=== PATIENT | female | born 1945 | race Caucasian/White ===

== ENCOUNTER 2025-06-28 19:28 | Inpatient (IN) | payer MEDICARE, OTHER ==
[~2025-06-28] VITALS: Ht 157.5 cm; Wt 72.6 kg
[2025-06-28] MEDS ORDERED: Ondansetron HCl 2 MG / ML 2ML Vial IV ONE ×2 (20:20→20:50)
[2025-06-28] MEDS ORDERED: NS 1,000 ML IV SCH ×2 (20:50→23:10)
[2025-06-28] MEDS ORDERED: HYDROmorphone HCl/Pf 1MG SYR IV ONE (20:50)
[2025-06-28 21:14] LABS: BASOPHILS ABSOLUTE AUTO 0.06 K/mm3 (0.00-0.23); BASOPHILS PERCENT AUTO 1 % (0-2); EOSINOPHILS ABSOLUTE AUTO 0.26 K/mm3 (0.00-0.68); EOSINOPHILS PERCENT AUTO 2 % (0-6); Hematocrit 41.5 % (33.0-51.0); Hemoglobin 13.5 g/dL (11.5-16.0); IMMATURE GRAN ABSOLUTE AUTO 0.12 K/mm3 (0.00-0.10); IMMATURE GRAN PERCENT AUTO 1 % (0-1); LYMPHOCYTES ABSOLUTE AUTO 1.57 K/mm3 (0.84-5.20); LYMPHOCYTES PERCENT AUTO 14 % (21-46); MONOCYTES ABSOLUTE AUTO 0.54 K/mm3 (0.16-1.47); MONOCYTES PERCENT AUTO 5 % (4-13); Mean Corpuscular HGB Conc 32.5 g/dL (31.5-36.5); Mean Corpuscular Volume 87 fL (80-100); NEUTROPHILS ABSOLUTE AUTO 8.63 K/mm3 (1.96-9.15); NEUTROPHILS PERCENT AUTO 77 % (41-73); NRBC ABSOLUTE 0.00 K/mm3 (0.00-0.02); NRBC Auto 0.0 /100 WBC (0.0-0.2); RDW Coefficient Variation 16.8 % (11.7-14.2); RDW Standard Deviation 53.0 fL (35.1-46.3)
[2025-06-28 21:24] LABS: Alanine Aminotransfer (ALT/SGP 38.0 U/L (12-78); Albumin, Blood 3.8 g/dL (3.4-5.0); Albumin/Globulin Ratio 1.0 (0.8-1.8); Anion Gap 8.0 mmol/L (3-11); Aspartate Aminotrans (AST/SGOT 59.0 U/L (12-37); Bilirubin, Total 0.6 mg/dL (0.1-1.0); Blood Urea Nitrogen 22.0 mg/dL (8-24); CO2, Blood 28.0 mmol/L (21-32); Calcium, Blood 9.4 mg/dL (8.5-10.1); Chloride, Blood 110.0 mmol/L (98-108); Creatinine, Blood 1.38 mg/dL (0.40-1.00); Globulin, Blood 4.0 g/dL (2.2-4.0); Glucose, Blood 127.0 mg/dL (70-99); Magnesium, Blood 2.4 mg/dL (1.6-2.4); Potassium, Blood 5.7 mmol/L (3.5-5.5); Sodium, Blood 140.0 mmol/L (136-145); Total Protein, Blood 7.8 g/dL (6.4-8.2)
[2025-06-28 21:44] LABS: Platelet Count 264 K/mm3 (150-400)
[2025-06-28 21:52] LABS: Influenza A, PCR NEGATIVE (NEGATIVE); Influenza B, PCR NEGATIVE (NEGATIVE); Resp Syncytial Virus, PCR NEGATIVE (NEGATIVE); SARS-Cov-2 (COVID-19) PCR, MMC NEGATIVE (NEGATIVE)
[2025-06-28] MEDS ORDERED: Prochlorperazine Edisylate 10 mg Vial IV ONE (21:55)
[2025-06-28] MEDS ORDERED: FLU VACC TS2025-26(6MOS UP)/PF 45 MCG/0.5 ML SYRINGE IM SCH (23:45)
[2025-06-28] MEDS ORDERED: FentaNYL Citrate 50 MCG/ML 2 ML Injection IV PRN (23:45)
[2025-06-28] MEDS ORDERED: Ondansetron HCl 2 MG / ML 2ML Vial IV PRN (23:45)
[2025-06-29 00:16] LABS: Source, Urine Clean Catch
[2025-06-29 00:22] LABS: Bilirubin, Urine Neg (Neg); Glucose Qualitative, Urine Neg (Neg); Ketones, Urine Neg (Neg); Leukocyte Esterase, Urine Neg (Neg); Protein, Urine Neg (Neg); Specific Gravity, Urine 1.010 (1.003-1.022); Urobilinogen, Urine NORM (Normal)
[2025-06-29 00:29] LABS: Color, Urine Yellow (P-Yellow)
[2025-06-29 00:35] LABS: Red Blood Cells, Urine 0-2 /hpf (0-2); White Blood Cells, Urine Not Seen /hpf (0-5)
[2025-06-29] MEDS ORDERED: HydrALAZINE HCl 20 MG / ML 1ML Vial IV PRN (01:05)
[2025-06-29 01:38] LABS: Alanine Aminotransfer (ALT/SGP 56.0 U/L (12-78); Albumin, Blood 3.5 g/dL (3.4-5.0); Albumin/Globulin Ratio 1.1 (0.8-1.8); Anion Gap 8.0 mmol/L (3-11); Aspartate Aminotrans (AST/SGOT 72.0 U/L (12-37); Bilirubin, Total 0.5 mg/dL (0.1-1.0); Blood Urea Nitrogen 20.0 mg/dL (8-24); CO2, Blood 28.0 mmol/L (21-32); Calcium, Blood 8.6 mg/dL (8.5-10.1); Chloride, Blood 110.0 mmol/L (98-108); Creatinine, Blood 1.19 mg/dL (0.40-1.00); Globulin, Blood 3.3 g/dL (2.2-4.0); Glucose, Blood 145.0 mg/dL (70-99); Potassium, Blood 4.5 mmol/L (3.5-5.5); Sodium, Blood 141.0 mmol/L (136-145); Total Protein, Blood 6.8 g/dL (6.4-8.2)
[2025-06-29 01:56] LABS: C-Reactive Protein, High Sens. 21.6 mg/L (0.000-3.000)
[2025-06-29 02:28] VITALS: BP 159/77
[2025-06-29] MEDS ORDERED: ESTRADIOL PO (02:45)
[2025-06-29] MEDS ORDERED: GABA100 PO (02:46)
[2025-06-29] MEDS ORDERED: PANTOPRAZOLE SO40 M2 PO (02:49)
[2025-06-29] MEDS ORDERED: SKYRIZI ON360 MG/2.4 SC (02:49)
[2025-06-29] MEDS ORDERED: COLESTIPOL HCL1 G1 PO (02:50)
[2025-06-29] MEDS ORDERED: ATEN50 PO (02:51)
[2025-06-29] MEDS ORDERED: VALTREX50013 PO (02:51)
[2025-06-29 04:21] VITALS: BP 176/78
--- NOTE | 2025-06-29 04:41 | NUR ---
SHIFT SUMMARY: PT ADMITTED TO THE UNIT THIS SHIFT AT ~0250. PT IS AOX4. HAS NGT IN PLACE, LOW INTERMITTENT SUCTIONING. IN THE NGT LINE THE CONTENTS ARE RED WITH MINIMAL BLOOD CLOTS, PT STATED THAT WHEN THE NGT WAS PLACED SHE HAD SOME BLEEDING. PT HAS BEEN NPO. TELEMETRY MONITORING, NSR 60s. CALL LIGHT IS WITHIN REACH. BED IS LOW AND LOCKED.
[2025-06-29 04:56] LABS: BASOPHILS ABSOLUTE AUTO 0.03 K/mm3 (0.00-0.23); BASOPHILS PERCENT AUTO 0 % (0-2); EOSINOPHILS ABSOLUTE AUTO 0.01 K/mm3 (0.00-0.68); EOSINOPHILS PERCENT AUTO 0 % (0-6); Hematocrit 37.7 % (33.0-51.0); Hemoglobin 11.9 g/dL (11.5-16.0); IMMATURE GRAN ABSOLUTE AUTO 0.09 K/mm3 (0.00-0.10); IMMATURE GRAN PERCENT AUTO 1 % (0-1); LYMPHOCYTES ABSOLUTE AUTO 0.72 K/mm3 (0.84-5.20); LYMPHOCYTES PERCENT AUTO 9 % (21-46); MONOCYTES ABSOLUTE AUTO 0.42 K/mm3 (0.16-1.47); MONOCYTES PERCENT AUTO 6 % (4-13); Mean Corpuscular HGB Conc 31.6 g/dL (31.5-36.5); Mean Corpuscular Volume 89 fL (80-100); NEUTROPHILS ABSOLUTE AUTO 6.42 K/mm3 (1.96-9.15); NEUTROPHILS PERCENT AUTO 83 % (41-73); NRBC ABSOLUTE 0.00 K/mm3 (0.00-0.02); NRBC Auto 0.0 /100 WBC (0.0-0.2); Platelet Count 200 K/mm3 (150-400); RDW Coefficient Variation 16.6 % (11.7-14.2); RDW Standard Deviation 53.8 fL (35.1-46.3)
[2025-06-29 05:27] LABS: Alanine Aminotransfer (ALT/SGP 54.0 U/L (12-78); Albumin, Blood 3.3 g/dL (3.4-5.0); Albumin/Globulin Ratio 1.1 (0.8-1.8); Anion Gap 7.0 mmol/L (3-11); Aspartate Aminotrans (AST/SGOT 50.0 U/L (12-37); Bilirubin, Total 0.4 mg/dL (0.1-1.0); Blood Urea Nitrogen 18.0 mg/dL (8-24); CO2, Blood 28.0 mmol/L (21-32); Calcium, Blood 8.7 mg/dL (8.5-10.1); Chloride, Blood 111.0 mmol/L (98-108); Creatinine, Blood 1.24 mg/dL (0.40-1.00); Globulin, Blood 3.0 g/dL (2.2-4.0); Glucose, Blood 110.0 mg/dL (70-99); Potassium, Blood 4.4 mmol/L (3.5-5.5); Sodium, Blood 142.0 mmol/L (136-145); Total Protein, Blood 6.3 g/dL (6.4-8.2)
[2025-06-29] MEDS ORDERED: Pantoprazole Sodium 40 MG Injection IV SCH (06:00)
[2025-06-29 07:32] VITALS: BP 141/71
[2025-06-29] MEDS ORDERED: Heparin Sodium,Porcine 5,000 UNIT/0.5 ML SDV SC SCH ×2 (08:00→09:00)
--- NOTE | 2025-06-29 10:34 | NUR ---
ASSUMPTION OF CARE: THIS RN ASSUMED CARE OF PATIENT. ASLEEP DURING SHIFT CHANGE REPORT. LYING IN BED c HOB ELEVATED. BREATHING EVEN AND UNLABORED c RA. NGT TO LOW-INTERMITTENT SUCTION c MINIMAL BROWN DRAINAGE IN COLLECTION CONTAINER. MOST RECENT TELE STRIP IN CHART REVIEWED AND INTERPRETED SINUS RHYTHM @ 68bpm. SUCTION CHANGED TO CONTINUOUS PER DR MCGUIRE. GEN SURG TO CONSULT. BED IN LOWEST POSITION. CALL LIGHT WITHIN REACH. ACUTE NEEDS MET.
[2025-06-29 11:39] VITALS: BP 142/73
--- NOTE | 2025-06-29 13:13 | NUR ---
NGT REMOVED AT [address] MCGUIRE
[2025-06-29 16:14] VITALS: BP 131/66
--- NOTE | 2025-06-29 18:43 | NUR ---
DISCHARGE SUMMARY: A&Ox4. PLEASANT AND COOPERATIVE WITH CARE. CALLS APPROPRIATELY AND IS ABLE TO ADVOCATE NEEDS EFFECTIVELY. INDEPENDENT c AMBULATION ONCE IV DCd AND NGT REMOVED. CONTINENT OF BOWEL AND BLADDER; LBM TODAY. PASSING FLATUS. MEDS WHOLE c FLUIDS. TELE SINUS. NO C/O PAIN, NAUSEA OR DISCOMFORT. NGT PULLED THIS MORNING. ABLE TO TOLERATE CLEARS AND FULL LIQUIDS. WANTS TO DC. PATIENT PROVIDED WITH COPY OF DISCHARGE PLAN AND MEDICATION LIST. INSTRUCTED TO FOLLOW-UP WITH GASTRO BACK HOME IN [place]. ALL QUESTIONS ANSWERED TO DISCHARGING NURSE'S ABILITY AND PATIENT VOICED UNDERSTANDING OF DISCHARGE PLAN. IV REMOVED AND PRESSURE DRESSING PLACED. LEFT FLOOR WITH ALL BELONGINGS AND DISCHARGE PACKET, ESCORTED BY DAUGHTER, PROVIDING TRANSPORTATION VIA POV.
== END 2025-06-29 17:08 | disposition home or self-care (01) | DRG 386 ==
LOC: ER 19:28 → ERHOLD 06-29 01:37 → MEDS 06-29 01:37
PROVIDERS: Emergency Medicine; Student in an Organized Health Care Education/Training Program; ADMIT Internal Medicine
PROC: 0D9670Z Drainage of Stomach with Drainage Device, Via Natural or Artificial Opening (ICD-10-PCS; principal; 2025-06-29)
DX: K50.012 Crohn's disease of small intestine with intestinal obstruction (principal); K86.2 Cyst of pancreas; K21.9 Gastro-esophageal reflux disease without esophagitis; E87.5 Hyperkalemia; I10 Essential (primary) hypertension; R16.0 Hepatomegaly, not elsewhere classified; K86.89 Other specified diseases of pancreas; Z90.49 Acquired absence of other specified parts of digestive tract; Z90.710 Acquired absence of both cervix and uterus; Z96.649 Presence of unspecified artificial hip joint; Z88.5 Allergy status to narcotic agent; R91.8 Other nonspecific abnormal finding of lung field
CPT/HCPCS: 36415; 71045; 74177; 80053; 81001; 83605; 83690; 83735; 84484; 85025; 85651; 86141; 87637; 93005; 93010; 96361; 96374-59; 96375; 99285-25; J0780; J1171; J1644; J2405; J2470; J7030; J7120; Q9967